=== PATIENT | female | born 1995 | race Caucasian/White ===

== ENCOUNTER 2024-12-06 13:09 | Emergency (ER) | payer MEDICAID, SELFPAY ==
[2024-12-06 13:14] VITALS: BP 115/59; PULSE 87; RESP 16; TEMP 36.6; O2SAT 97; BMI 22.0
--- NOTE | 2024-12-06 13:14 | ED_ITS ---
HPI - General Adult General Chief complaint: ETOH/Substance Use Stated complaint: Alcohol withdrawal Related Data Allergies Allergy/AdvReac Type Severity Reaction Status Date / Time No Known Allergies Allergy Verified 12/06/24 13:16 [facility] Social History Social History Advance Directives: No Advance Directives Information Provided: No Do you have a plan to hurt others: No Plan Physical Exam ED Vital Signs: Vital Signs - 24 hr 12/06/24 13:14 Temperature 97.8 F Pulse Rate 87 Respiratory Rate 16 Blood Pressure 115/59 L Pulse Oximetry 97 Oxygen Delivery Method Room Air BMI result Body Mass Index 22.0 Course Course Course Narrative: This is a rapid medical exam performed by Jeffrey Coronel NP: Additional HPI, ROS, PE not included below will be deferred to primary provider. Patient is a 29-year-old female with history of alcohol use disorder, was in recovery but relapsed around one month ago. Drinking 1 pint of [place] per night. Last drink 2 hours ago. Denies history of withdrawal symptoms or seizures. Looking for help with detox. Plan: med clearance, addiction consult Discharge Plan Discharge Clinical Impression: Alcohol use disorder Patient Disposition: Left W/O Completing Treatment Discharge Date/Time: 12/06/24 18:29
--- NOTE | 2024-12-06 13:57 | MHC.EDTECH ---
no answer for labs at [id number]
== END 2024-12-06 18:29 | disposition left against medical advice (07) ==
PROVIDERS: Emergency Provider Emergency Medicine
DX: F10.90 Alcohol use, unspecified, uncomplicated (principal); Y90.9 Presence of alcohol in blood, level not specified
CPT/HCPCS: 99281